=== PATIENT | female | born 1990 ===

== ENCOUNTER 2016-12-10 05:38 | Emergency (ER) | payer OTHER ==
[2016-12-10 05:51] VITALS: RESP 20
[2016-12-10 06:26] LABS: RBC URINE < 1 /hpf (0-3); URINE BILIRUBIN NEGATIVE (NEGATIVE); URINE BLOOD 1+ (NEGATIVE); URINE COLOR Straw (YELLOW); URINE GLUCOSE (UA) NORMAL (Normal); URINE KETONE NEGATIVE (NEGATIVE); URINE LEUKOCYTE ESTERASE 3+ Leu/uL (Negative); URINE PROTEIN NEGATIVE (NEGATIVE); URINE UROBILINOGEN NORMAL mg/dL (0.2-1.0); WBC URINE 14 /hpf (0-5)
--- NOTE | 2016-12-10 06:26 | C.PDOC ---
History Of Present Illness 26 year old female presents to the ED with complaints of urinary frequency and dysuria that began this morning. Patient has a history of similiar symptoms when diagnosed with a UTI. Patient denies vaginal discharge, vaginal bleeding, back pain, or fever. Time Seen by Provider: 12/10/16 05:52 Chief Complaint (Nursing): Female Genitourinary History Per: Patient History/Exam Limitations: no limitations Onset/Duration Of Symptoms: Hrs Current Symptoms Are (Timing): Still Present Associated Symptoms: Urinary Symptoms. denies: Fever, Chills, Nausea, Vomiting , Diarrhea Recent travel outside of the [place]: No Abnormal Vaginal Bleeding: No Past Medical History Reviewed: Historical Data, Nursing Documentation, Vital Signs Vital Signs: Last Vital Signs Temp 97.0 F L 12/10/16 05:46 Pulse 83 12/10/16 05:46 Resp 20 12/10/16 05:46 BP 121/87 12/10/16 05:46 Pulse Ox 100 12/10/16 06:29 Family History: States: Unknown Family Hx - Social History Hx Alcohol Use: No Hx Substance Use: No - Immunization History Hx Tetanus Toxoid Vaccination: No Hx Influenza Vaccination: No Review Of Systems Constitutional: Negative for: Fever, Chills Cardiovascular: Negative for: Chest Pain, Palpitations Respiratory: Negative for: Cough, Shortness of Breath Gastrointestinal: Negative for: Nausea, Vomiting, Abdominal Pain, Diarrhea Genitourinary: Positive for: Dysuria, Frequency. Negative for: Vaginal Discharge, Vaginal Bleeding Musculoskeletal: Negative for: Back Pain Physical Exam - Physical Exam Appears: Non-toxic, No Acute Distress Skin: Warm, Dry Head: Atraumatic Eye(s): bilateral: Normal Inspection, EOMI Oral Mucosa: Moist Neck: Supple Chest: Symmetrical, No Deformity Cardiovascular: Rhythm Regular Respiratory: Normal Breath Sounds, No Rales, No Rhonchi, No Wheezing Gastrointestinal/Abdominal: Soft, No Tenderness, No Distention, No Guarding, No Rebound Back: No CVA Tenderness, No Vertebral Tenderness Extremity: Normal ROM, No Tenderness Neurological/Psych: Oriented x3, Normal Speech ED Course And Treatment O2 Sat by Pulse Oximetry: 100 (room air ) Progress Note: Discussed prevention and sign of concern to return to ER. Patient was instructed to follow up with physician in 1-2 days for further evaluation. Reevaluation Time: 06:24 Reassessment Condition: Improved Disposition - Disposition Disposition: HOME/ ROUTINE Disposition Time: 06:31 Condition: STABLE Additional Instructions: Follow up with primary medical doctor in 1-3 days without fail for further evaluation. Return to the emergency department at any time if symptoms persist or worsen. Prescriptions: Nitrofurantoin Macrocrystals [Macrobid] 1 cap PO BID #14 cap Phenazopyridine HCl [Pyridium] 100 mg PO TID #6 tablet Instructions: Urinary Tract Infection in Women (ED) - Clinical Impression Clinical Impression: UTI (urinary tract infection) - Scribe Statement The provider has reviewed the documentation as recorded by the Scribe Alyse Ledesma All medical record entries made by the Scribe were at my direction and personally dictated by me. I have reviewed the chart and agree that the record accurately reflects my personal performance of the history, physical exam, medical decision making, and the department course for this patient. I have also personally directed, reviewed, and agree with the discharge instructions and disposition.
[2016-12-10 07:10] VITALS: BP 110/68; PULSE 86; TEMP 98.1; O2SAT 97
== END 2016-12-10 06:45 | disposition home or self-care (01) ==
LOC: C.ER 05:38
DX: N39.0 Urinary tract infection, site not specified (principal)